=== PATIENT | male | born 1980 | race Caucasian/White ===

== ENCOUNTER 2019-01-29 20:51 | Emergency (ER) | payer OTHER ==
[~2019-01-29] VITALS: Ht 177.8 cm; Wt 72.6 kg
[~2019-01-29 20:51] MED LIST: AMOXICILLIN500 M1 PO; CORTISPORIN OTI10 M2 OTIC
[2019-01-29] MEDS ORDERED: CLEOCIN HCL150 M1 PO (21:58)
[2019-01-29] MEDS ORDERED: NORCO 5-325 TA1 EAC1 PO (21:58)
[2019-01-29 22:17] VITALS: BP 140/75
== END 2019-01-29 22:18 | disposition home or self-care (01) ==
LOC: M.ERS 20:51
DX: L02.512 Cutaneous abscess of left hand (principal); K21.9 Gastro-esophageal reflux disease without esophagitis; Z88.6 Allergy status to analgesic agent